=== PATIENT | female | born 1995 ===

== ENCOUNTER 2022-06-28 12:42 | Outpatient (CLI) | payer OTHER | END 2022-06-28 13:30 | disposition home or self-care (01) | LOC: NST 12:42 | PROVIDERS: ATTEND Obstetrics & Gynecology | DX: Z34.83 Encounter for supervision of other normal pregnancy, third trimester (principal) ==

== ENCOUNTER 2022-06-28 14:30 | Inpatient (IN) | payer OTHER ==
[~2022-06-28] VITALS: Ht 167.6 cm; Wt 93.0 kg
[2022-07-11] MEDS ORDERED: PRENATAL TABLE1 EAC1 PO (05:59)
== END 2022-07-13 10:46 | disposition home or self-care (01) | DRG 807 ==
LOC: LDR 07-11 04:58 → OB/GYN 07-11 04:58
PROVIDERS: ADMIT Obstetrics & Gynecology; ATTEND Obstetrics & Gynecology
PROC: 10E0XZZ Delivery of Products of Conception, External Approach (ICD-10-PCS; principal; 2022-07-11)
PROC: 0HQ9XZZ Repair Perineum Skin, External Approach (ICD-10-PCS; 2022-07-11)
PROC: 0UQG7ZZ Repair Vagina, Via Natural or Artificial Opening (ICD-10-PCS; 2022-07-11)
PROC: 4A1HXCZ Monitoring of Products of Conception, Cardiac Rate, External Approach (ICD-10-PCS; 2022-07-11)
DX: O70.0 First degree perineal laceration during delivery (principal); Z37.0 Single live birth; Z3A.39 39 weeks gestation of pregnancy; Z20.822 Contact with and (suspected) exposure to COVID-19

== ENCOUNTER 2022-07-10 10:22 | Outpatient (CLI) | payer OTHER ==
[2022-07-11] MEDS ORDERED: PRENATAL TABLE1 EAC1 PO (05:59)
== END 2022-07-10 11:03 | disposition home or self-care (01) ==
LOC: NST 10:22
PROVIDERS: ATTEND Obstetrics & Gynecology
DX: Z34.83 Encounter for supervision of other normal pregnancy, third trimester (principal)